=== PATIENT | female | born 1985 ===

== ENCOUNTER 2016-11-24 10:03 | Emergency (ER) | payer MEDICAID, OTHER ==
[2016-11-24 10:19] VITALS: TEMP 97.9
[2016-11-24 12:01] LABS: RBC URINE 1 /hpf (0-3); URINE BACTERIA RARE (<OCC); URINE BILIRUBIN NEGATIVE (NEGATIVE); URINE BLOOD NEGATIVE (NEGATIVE); URINE COLOR Yellow (YELLOW); URINE GLUCOSE (UA) NORMAL (Normal); URINE KETONE NEGATIVE (NEGATIVE); URINE LEUKOCYTE ESTERASE TRACE Leu/uL (Negative); URINE PROTEIN NEGATIVE (NEGATIVE); URINE UROBILINOGEN NORMAL mg/dL (0.2-1.0); WBC URINE 3 /hpf (0-5)
--- NOTE | 2016-11-24 12:31 | C.PDOC ---
History Of Present Illness 31 yr old female, 6 months presents to the ER with complaints of vagina itchy and discharge for the past 3 days. Patient admits to recent sexual intercourse which worsened the itching. Denies abdominal pain, diarrhea, dysuria , vaginal bleeding or pelvic pain. 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 History/Exam Limitations: language barrier Onset/Duration Of Symptoms: Days (3) Current Symptoms Are (Timing): Still Present Past Medical History Reviewed: Historical Data, Nursing Documentation, Vital Signs Vital Signs: Last Vital Signs Temp 97.9 F 11/24/16 12:51 Pulse 75 11/24/16 12:51 Resp 19 11/24/16 12:51 BP 110/68 11/24/16 12:51 Pulse Ox 99 11/24/16 13:01 Family History: States: No Known Family Hx - Social History Hx Alcohol Use: No Hx Substance Use: No - Immunization History Hx Tetanus Toxoid Vaccination: No Hx Influenza Vaccination: No Hx Pneumococcal Vaccination: No Review Of Systems Except As Marked, All Systems Reviewed And Found Negative. Gastrointestinal: Negative for: Abdominal Pain, Diarrhea Genitourinary: Positive for: Vaginal Discharge, Other ((+) Vaginal itch.). Negative for: Dysuria, Vaginal Bleeding, Pelvic Pain Physical Exam - Physical Exam Appears: Well, Non-toxic, No Acute Distress Skin: Warm, Dry, No Rash Head: Atraumatic, Normacephalic Eye(s): bilateral: Normal Inspection, EOMI Nose: Normal Oral Mucosa: Moist Neck: Normal, Normal ROM, Supple Chest: Symmetrical, No Tenderness Cardiovascular: Rhythm Regular, No Murmur Respiratory: Normal Breath Sounds, No Rales, No Wheezing Gastrointestinal/Abdominal: Normal Exam, Soft, No Tenderness, No Guarding, No Rebound, Other ((+) Gravid.) Back: No CVA Tenderness, No Vertebral Tenderness Pelvic: Vaginal Discharge (White thick discharge.), No Cervical Motion Tenderness, No Cervix Open, No Adnexal Tenderness Extremity: Bilateral: Atraumatic Neurological/Psych: Oriented x3, Normal Speech, Normal Cognition ED Course And Treatment O2 Sat by Pulse Oximetry: 99 Progress Note: PLAN: Chlamydia GC, HCG & Urinlaysis. case discussed with Dr Godoy, agreed upon plan and treatment. Agreed upon no prophylaxis at the time. instructed strict follow up in 1-2 days. Disposition - Disposition Disposition: HOME/ ROUTINE Disposition Time: 12:29 Condition: STABLE Additional Instructions: Vaya a garcia mdico o la clnica en 2-5 harp sin falta, para mas evaluacin. [place] los medicamentos kristopher indicado. Volver a la lei de emergencia en cualquier momento si los sntomas persisten o empeoran. Prescriptions: Miconazole [Miconazole 7] 100 mg VG QPM 7 Days Instructions: Vulvovaginal Candidiasis (ED) - Clinical Impression Clinical Impression: Vulvovaginal itching - PA / BONSAI TENDER / Resident Statement MD/DO has reviewed & agrees with the documentation as recorded. - Scribe Statement The provider has reviewed the documentation as recorded by the Scribe Kimber Soto All medical record entries made by the Scribe were at my direction and personally dictated by me. I have reviewed the chart and agree that the record accurately reflects my personal performance of the history, physical exam, medical decision making, and the department course for this patient. I have also personally directed, reviewed, and agree with the discharge instructions and disposition.
[2016-11-24 12:52] VITALS: BP 110/68; PULSE 75; RESP 19
[2016-11-24 13:00] VITALS: O2SAT 99
== END 2016-11-24 12:51 | disposition home or self-care (01) ==
LOC: C.ER 10:03
DX: L29.8 Other pruritus (principal)

== ENCOUNTER 2017-01-26 16:08 | Emergency (ER) | payer OTHER ==
--- NOTE | 2017-01-26 16:47 | OBHP ---
Datetime: 01/26/2017 16:41 IP Adm Impression: Term, intrauterine IP Chief Complaint Other: nst IP Admit Plan: Discharge home Admit Comment, IP Provider: at 37=weeks with gdma1 her for nst, no ctxs, vb, lof,+fm. obhx 1 x c/s pmh gdma1 med pnv all nkda psh c/s soch de nst 130 mod daljit ctg1 fs a/p at 37+weeks her for nst for GDMA1 Dc home labor ins given nst once weekly po hyration f/u in clinic on thursday Pelvic Type - PN: Adequate Extremities - PN: Normal Abdomen - PN: Normal Back - PN: Normal Breast - PN: Not Done Lungs - PN: Normal Heart - PN: Normal Thyroid - PN: Not Done Neurologic - PN: Normal HEENT - PN: Normal General - PN: Normal FHR - Baseline A Provider: 130 Contraction Comments Provider: none Comments, ACOG Physical Exam: gravid,non tender ext no edema,no calf ten Vital Signs Provider: Reviewed; Within Normal Limits NICHD Variability Prov Fetus A: Moderate 6-25bpm NICHD Accel Fetus A IP Provider: 15X15 FHR Category Provider Fetus A: Category I Genitourinary Exam: Normal DTRs - PN: Normal
--- NOTE | 2017-01-26 16:47 | OBDCSUM ---
Datetime: 01/26/2017 16:44 Discharged to, Provider: Home Follow up at, Provider: 01/30/17 Follow up in weeks, Provider: clinic Discharge Comment, Provider: Dc home labor ins given nst once weekly po hyration f/u in clinic on thursday Discharge Diagnosis Prov Other: 37weeks nst gdma1
[2017-01-26 23:14] VITALS: BP 118/67; PULSE 92; RESP 20; TEMP 97.9; O2SAT 95
== END 2017-01-26 17:11 | disposition home or self-care (01) ==
LOC: C.EROB 16:08
DX: Z36 Encounter for antenatal screening of mother (principal)

== ENCOUNTER 2017-02-02 14:47 | Emergency (ER) | payer OTHER ==
--- NOTE | 2017-02-09 06:30 | OBHP ---
Datetime: 02/02/2017 17:37 IP Adm Impression: Term, intrauterine IP Chief Complaint Other: NST IP Adm Impression Other: A1GDM; previous C/S IP Admit Plan: Discharge home Admit Comment, IP Provider: Patient seen and evaluated approximately 1515 hours. 31 y.o. , LMP 05/06/16; revised BRITTON 02/14/17, EGA 38w 2d here for weekly NST due to A1GDM; prev ious C/S. (+) AFM; denies LOF, VB, Ctx. care: [facility]; previous C/S. F.S. 02/01/17, per patient = 90/97/100/96. 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 since 2007; lives with and son. 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 Fam Hx: Mother alive 62 y.o. - DM. Father alive 62 y.o. no med issues. No fam h/o cancer P.E.: as above. WD in NAD. Awake, alert, oriented to time, person and place. Pleasant and cooperat rafael. Accompanied by . Assessment: 31 yo P1, 38w 2d, previous C/S, A1GDM for elective repeat C/S 02/10/17 at 39 weeks. F.S . suggests good glycemic control. NST reactive. Clinically stable. Plan: 1) Discharge home 2) Keep appointment for BPP this week 3) Keep appointment for this week 4) continue F.S. log 5) Cont PNV Pelvic Type - PN: Not Done Extremities - PN: Normal Abdomen - PN: Normal Back - PN: Normal Breast - PN: Normal Lungs - PN: Normal Heart - PN: Normal Thyroid - PN: Not Done Neurologic - PN: Normal HEENT - PN: Normal General - PN: Normal Presentation-Admit: Vertex FHR - Baseline A Provider: 145 Contraction Comments Provider: one 40 minutes Comments, ACOG Physical Exam: Abdomen: Gravid. Soft. Non tender All other systems reviewed and are negative Gestation - Est Wks by US: 38.0 EGA AdmitDate IP: 38.2 IP Chief Complaint: evaluation NICHD Variability Prov Fetus A: Moderate 6-25bpm NICHD Accel Fetus A IP Provider: 15X15 FHR Category Provider Fetus A: Category I NICHD Decel Fetus A IP Provider: None Dilatation, Provider: deferred Genitourinary Exam: Not Done DTRs - PN: Not Done
[2017-02-09 10:32] VITALS: BP 121/62; PULSE 87; RESP 18; TEMP 99; O2SAT 97
== END 2017-02-02 15:28 | disposition home or self-care (01) ==
LOC: C.EROB 14:47
DX: O26.893 Other specified pregnancy related conditions, third trimester (principal); Z3A.38 38 weeks gestation of pregnancy

== ENCOUNTER 2017-02-09 11:14 | Inpatient (IN) | payer OTHER ==
[2017-02-10] MEDS ORDERED: cefOXitin IV 2 gm in Dextrose 2 GM/50 ML BAG IVPB ONE ×2 (06:45→07:12)
[2017-02-10] MEDS ORDERED: Lactated Ringer's 1,000 ML IV SCH (06:45)
[2017-02-10] MEDS ORDERED: Sodium Citrate/Citric Acid 15 ml Sol PO ONE (06:45)
[2017-02-10] MEDS ORDERED: Oxytocin 20 units in LR 2,000 ML IV ONE (07:12)
[2017-02-10] MEDS ORDERED: Sodium Citrate/Citric Acid 15 ml Sol ONE (07:12)
--- NOTE | 2017-02-10 07:18 | OBADHP ---
Datetime: 02/10/2017 06:54 Admit Comment, IP Provider: 31 y.o. , LMP 05/06/16; revised [place]TON 02/14/17, EGA 38w 2d here for attila adam NST due to A1GDM; previous C/S. (+) AFM; denies LOF, VB, Ctx. care: [facility] - A1GDM; pr evious C/S. F.S. 02/01/17, per patient = 90/97/100/96. P Ob: 2009, C/S, male, 10+lb; failure to dilate (1cm)/failed GONZALEZ; No GDM. 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 since 2007; lives with and son. 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 Fam Hx: Mother alive 62 y.o. - DM. Father alive 62 y.o. no med issues. No fam h/o cancer P.E.: as above. WD in NAD. Awake, alert, oriented to time, person and place. Pleasant and cooperat rafael. Accompanied by . Assessment: 31 y.o. P1, 39w 3d, previous C/S for elective repeat. A1 GDM well controlled: today's fasting 82; yesterday 96/113/119/100. Patient last ate and drank at 2100 hours. Category 1 tracing. Clinically stable. Plan: 1) Admit 2) NPO 3) IVFs 4) Continuous EFM 5) Abdominal prep and shave 6) Martinez 7) Mefoxin 8) Notify anesthesia 9) Notify peds 10) automatic coin machine mechanic to O.R. Back - PN: Normal Breast - PN: Not Done Lungs - PN: Normal Heart - PN: Normal Thyroid - PN: Not Done Neurologic - PN: Normal HEENT - PN: Normal General - PN: Normal Presentation-Admit: Vertex FHR - Baseline A Provider: 135 Contraction Comments Provider: sporadic Comments, ACOG Physical Exam: Abdomen: Gravid. Soft, Non tender. Fundal height 40cm All other systems reviewed Gestation - Est Wks by US: 39w 3d Vital Signs Provider: Reviewed IP Chief Complaint: Scheduled Section FHR Category Provider Fetus A: Category I EGA AdmitDate IP: 39.3 IP Adm Impression: Term, intrauterine IP Admit Plan: Admit to unit; Initiate Section protocol Datetime: 02/02/2017 17:37 IP Chief Complaint Other: NST IP Adm Impression Other: A1GDM; previous C/S Pelvic Type - PN: Not Done Extremities - PN: Normal Abdomen - PN: Normal NICHD Variability Prov Fetus A: Moderate 6-25bpm NICHD Accel Fetus A IP Provider: 15X15 NICHD Decel Fetus A IP Provider: None Dilatation, Provider: deferred Genitourinary Exam: Not Done DTRs - PN: Not Done
[2017-02-10 07:25] LABS: BASO % 0.2 % (0.0-2.0); EOS # 0.1 K/uL (0.0-0.7); HEMATOCRIT 39.5 % (34.0-47.0); LYMPH # 2.5 K/uL (1.0-4.3); LYMPH % 18.9 % (20.0-40.0); MEAN CELL VOLUME 91.5 fL (81.0-99.0); MEAN CORPUSCULAR HEMOGLOBIN 30.6 pg (27.0-31.0); MEAN CORPUSCULAR HGB CONC 33.5 g/dL (33.0-37.0); MEAN PLATELET VOLUME 8.8 fL (7.2-11.7); MONO # 0.8 K/uL (0.0-0.8); MONO % 6.2 % (0.0-10.0); RED CELL DISTRIBUTION WIDTH 13.7 % (11.5-14.5)
[2017-02-10 07:30] LABS: RBC URINE < 1 /hpf (0-3); URINE BACTERIA RARE (<OCC); URINE BILIRUBIN NEGATIVE (NEGATIVE); URINE BLOOD NEGATIVE (NEGATIVE); URINE COLOR Straw (YELLOW); URINE GLUCOSE (UA) NORMAL (Normal); URINE KETONE NEGATIVE (NEGATIVE); URINE LEUKOCYTE ESTERASE NEG Leu/uL (Negative); URINE PROTEIN NEGATIVE (NEGATIVE); URINE UROBILINOGEN NORMAL mg/dL (0.2-1.0); WBC URINE 2 /hpf (0-5)
[2017-02-10] MEDS ORDERED: Morphine 1 mg/ml preservative-free Inj(Duramorph) ONE (07:33)
[2017-02-10] MEDS ORDERED: Phenylephrine 10 mg/ml Inj ONE (07:33)
[2017-02-10 07:37] LABS: CHLORIDE 105 mmol/L (98-107); POTASSIUM 3.7 mmol/L (3.6-5.2); SODIUM 138 mmol/L (132-148)
[2017-02-10 07:39] LABS: AST/SGOT 32 U/L (14-36); BILIRUBIN,TOTAL 0.5 mg/dL (0.2-1.3); BLOOD UREA NITROGEN 10 mg/dL (7-17); CARBON DIOXIDE 22 mmol/L (22-30); GFR AFRICAN-AMERICAN > 60
[2017-02-10 07:40] LABS: ALKALINE PHOSPHATASE 110 U/L (38-126); ALT/SGPT 39 U/L (9-52); CALCIUM 8.9 mg/dl (8.6-10.4); GLUCOSE,RANDOM 79 mg/dL (65-105)
[2017-02-10] MEDS ORDERED: Oxycodone/Acetaminophen 5/325 mg Tab PO PRN (11:47)
[2017-02-10 12:18] LABS: BASO # 0.1 K/uL (0.0-0.2); BASO % 0.3 % (0.0-2.0); EOS # 0.1 K/uL (0.0-0.7); EOS % 0.4 % (0.0-4.0); HEMATOCRIT 41.6 % (34.0-47.0); LYMPH # 2.1 K/uL (1.0-4.3); LYMPH % 11.5 % (20.0-40.0); MEAN CELL VOLUME 93.1 fL (81.0-99.0); MEAN CORPUSCULAR HEMOGLOBIN 30.3 pg (27.0-31.0); MEAN CORPUSCULAR HGB CONC 32.5 g/dL (33.0-37.0); MEAN PLATELET VOLUME 9.1 fL (7.2-11.7); MONO # 0.8 K/uL (0.0-0.8); MONO % 4.2 % (0.0-10.0); RED CELL DISTRIBUTION WIDTH 13.7 % (11.5-14.5); WHITE BLOOD COUNT 18.4 K/uL (4.8-10.8)
--- NOTE | 2017-02-10 15:48 | OBDS ---
DELIVERY PERSONNEL Delivery Doctor: Han Dee MD Scrub Nurse: shameka marie [employer] Sales Manager: Gerardo Melendez RN Anesthesiologist: MD Lucy MATERNAL INFORMATION Delivery Anesthesia: Spinal Medications in Delivery: floseal 5mls/ methergine/pitocin 20 units in 1000mls of LR Estimated Blood Loss (ml): 900 Maternal Complications: None RN Comments: successful delivery of 39.3 wk IUP via repeat c/s to a viable baby boy with apgars 9-9. Provider Comments: repeat csection done uterus adhered to abdominal wall anteriorly as well as laterally NUchalx1 around neck loose and atrue knot noted at delivery EBL 900CC LABOR SUMMARY EDC: 02/14/2017 00:00 No. Babies in Womb: 1 Attempted: No Labor Anesthesia: None LABOR INFORMATION Reason for Induction: Not Applicable Group B Beta Strep: Positive Antibiotics # of Doses: 1 Antibiotics Time of Last Dose: mefoxin 2 grams ivpb Steroids Given: None Reason Steroids Not Administered: Not Applicable MEMBRANES Membranes Rupture Method: Artificial Rupture of Membranes: 02/10/2017 09:19 Length of Rupture (hrs): 0.02 Amniotic Fluid Color: Clear Amniotic Fluid Amount: Moderate Amniotic Fluid Odor: Normal STAGES OF LABOR Stage 3 hrs: 0 Stage 3 min: 1 CSECTION DELIVERY Primary Indication: Repeat Elective Secondary Indication: Repeat Elective CSection Urgency: Elective CSection Incidence: Repeat Labor: N/A Elective: Elective CSection Incision: Lower Uterine Transverse Uterine Closure: Single-layer closure BABY A INFORMATION Infant Delivery Date/Time: 02/10/2017 09:20 Method of Delivery: Born in Route : No : N/A Forceps: N/A Vacuum Extraction: N/A Shoulder Dystocia : No SHOULDER DYSTOCIA BABY A Infant Delivery Date/Time: 02/10/2017 09:20 PRESENTATION/POSITION BABY A Presentation: Cephalic Cephalic Presentation: N/A Vertex Position: Left Occipital Anterior Breech Presentation: N/A PLACENTA INFORMATION BABY A Placenta Delivery Time : 02/10/2017 09:21 Placenta Method of Delivery: Manual Removal Placenta Status: Delivered SCORES BABY A Heart Rate 1 min: >100 bpm Resp Effort 1 min: Good Cry Reflex Irritability 1 min: Cough or Sneeze or Pulls Away Muscle Tone 1 min: Active Motion Color 1 min: Body Champion, Extremities Blue SCORE 1 MIN: 9 Heart Rate 5 min: >100 bpm Resp Effort 5 min: Good Cry Reflex Irritability 5 min: Cough or Sneeze or Pulls Away Muscle Tone 5 min: Active Motion Color 5 min: Body Champion, Extremities Blue SCORE 5 MIN: 9 INFORMATION BABY A Gestational Age at Delivery: 39.3 Gestational Status: Term Outcome : Liveborn Condition : Stable Sex: Male IDENTIFICATION/MEDS BABY A ID Band Number: [id number] Sensor Number: [id number] WEIGHT/LENGTH BABY A Infant Birthweight (gms): 3835 Weight (lb): 8 Infant Weight (oz): 7 Infant Length Inches: 19.00 Length cms: 48.3 CORD INFORMATION BABY A No. Cord Vessels: 3 Nuchal Cord : Around Neck x1, Loose Nuchal Cord Other: n/a True Knot: 1 Cord Blood Taken: Yes Banking/Donate Info: n/a Suction: Mouth; Nose ASSESSMENT BABY A Complications: None Physical Findings at Delivery: Within Normal Limits Infant Respirations: Appears Normal Player Development Executive/ALS Called : No Infant Care By: rusty beth and Transferred To: Remains with Mother
[2017-02-10] MEDS ORDERED: cefOXitin IV 2 gm in Dextrose 2 GM/50 ML BAG IVPB SCH (18:00)
[2017-02-10] MEDS: cefOXitin IV 2 gm in Dextrose 2 GM/50 ML BAG IVPB SCH (19:58)
[2017-02-10] MEDS ORDERED: DiphenhydrAMINE 50 mg/ml Inj IVP ONE (21:00)
[2017-02-11] MEDS: cefOXitin IV 2 gm in Dextrose 2 GM/50 ML BAG IVPB SCH ×2 (03:52→12:24)
--- NOTE | 2017-02-11 04:40 | OP ---
PROCEDURE DATE: 02/10/2017 PREOPERATIVE DIAGNOSES: 1. Previous infection, declined trial of labor. 2. term intrauterine . POSTOPERATIVE DIAGNOSES: 1. Previous infection, declined trial of labor. 2. term intrauterine . PROCEDURE PERFORMED: Repeat lower transverse section. SURGEON: Hugh Dee MD. FLIGHT SURGEON: Sharath Clark MD. Please note that the procedure required a surgical technology instructor to assist with entry into the abdominal cavity, to assist with the retraction of the tissues, to assist with the delivery of the , and to assist with the closure of the abdominal wall. The surgical technology instructor was present and scrubbed for the entire duration of the procedure. TYPE OF ANESTHESIA: Spinal anesthesia. ANESTHESIA ADMINISTERED BY: Navjot Ayala COMPLICATIONS: None. FINDINGS: Viable male in vertex presentation with nuchal X1 around neck, loose as well as a true knot in the umbilical cord at the time of delivery noted. Uterus with adhesions to the anterior abdominal wall as well as the lateral pelvic side wall. Unable to visualize the ovaries and the fallopian tubes. 's of 9 at 1 minute and 9 at 5 minutes. ESTIMATED BLOOD LOSS: 900 mL SPECIMENS: Placenta and segment of cord for cord blood pH. DESCRIPTION OF PROCEDURE: After informed consent was obtained, the patient was taken to the operating room where spinal anesthesia was then administered by the anesthesia team. She was therefore placed in dorsal supine position with a leftward tilt. She was then prepped and draped in the usual sterile manner. A Martinez catheter was confirmed to be draining clear urine. A Pfannenstiel skin incision was made in the previous scar and this was carried down to the underlying layer of the fascia with the help of the Bovie. The fascia was then incised in the midline and the incision extended laterally with the help of a Bovie as well. The superior aspect of the fascial incision was then grasped with Rainer clamps and elevated and the underlying rectus muscle was dissected off sharply. Attention was then turned to the inferior aspect of the fascial incision, which in a similar fashion was grasped with Rainer clamps and elevated and the underlying rectus muscle was dissected off. The rectus muscle was then tented up with the Allis clamps and sharply in the midline with help of the scalpel as well. At this point, the peritoneum was tented up with Kelsea clamps and entered sharply with Metzenbaum scissors. Once entering the peritoneal cavity, the uterus was found to be adhered throughout the anterior abdominal wall. Some of the adhesions were thin flimsy adhesions and some of the them were dense adhesions. Paying careful attention to the position of the bladder, the thin adhesions were carefully dissected on the left pelvic side wall. Similar dissection was carried out on to the right pelvic side wall as well as the low uterine segment was also freed of the adhesions sharply. Once the lower uterine segment was freed up from the adhesions in order to accomplish safe delivery, a transverse incision was made over the lower uterine segment with the help of a scalpel. The incision was bluntly stretched and the membranes were then ruptured atraumatically. The head was then delivered. Nuchal X1 around neck loose was found, which was reduced and then after the body and shoulders were delivered the true knot was noted in the umbilical cord. The cord was then clamped and cut and the infant was handed over to the waiting pediatricians. A segment of cord was taken to send for cord blood pH. Cord blood was thereafter collected and the placenta was then manually removed. The uterus was then attempted to be exteriorized, but it was densely adhered to the pelvic side markham as well as the anterior abdominal wall. The bladder blade was then inserted and the uterus was cleared of all clots and debris. A bleeding was noted from the uterus, especially from acne. At this point, anesthesia was asked to give IM Methergine, which was administered by anesthesia team along with the Pitocin mixed IV fluid, which was running. The uterus was noted to form up. The uterine incision was repaired with 0 Polysorb in a running locked fashion. Bleeding was noted from the mid section as well as from the right edge of the uterus and this was suture ligated with 0 Polysorb as well as 2-0 chromic. The peritoneal edge near the right lower edge was also noted to be oozing and this was also suture ligated with 2-0 chromic. At this point, it was determined that the serosa towards the right edge of the hysterotomy had been peeled off with the lysis of the adhesions and this was bleeding; so thereafter, a second layer of suture was done using 3-0 Polysorb in a running locked fashion to approximate the suture to the uterine incision repair site. Adequate hemostasis was noted on the uterine incision repair site. The lower end of the bladder was infected and the Kelsea clamp was placed and the Martinez and the bladder was back filled. The bladder was noted to have been away from the area of the dissection and on filling the bladder no urine was noted into the abdominal cavity. This bladder was then decompressed. The edge of the bladder at one point was noted to be bleeding and this was suture ligated using 3-0 Polysorb via figure-of-8 sutures. Adequate hemostasis was noted at this point. FloSeal was thereafter placed over the uterine incision repair site as well as the oozing peritoneal edges. Surgicel was placed over the uterine incision on the left side. Adequate hemostasis was noted from the area of the dissection as well as from the uterine incision repair site. The muscle was examined at this point. A small bleeding hematoma was noted on the left upper edge of the left rectus sheath at the junction of the fascia and this was suture ligated using 0 Polysorb via mattress suture, adequate hemostasis was noted from it. The muscle area was reapproximated with 2-0 Polysorb via mattress suture. The fascia was then closed with 0 Vicryl in a running fashion. The subcutaneous was reapproximated with 2-0 Polysorb in a running fashion. The skin was then also closed with manny. The sponge, lap, needle,and instrument count was correct as reported to me at the end of the procedure. The patient was thereafter cleaned and taken to the recovery room in stable condition. The sponge, lap, needle instrument count was correct as stated. Earlier, the Martinez catheter was left in situ for postop bladder drainage. A CBC will be checked in the recovery area. Hugh Dee MD MAGDY
[2017-02-11] MEDS: Oxycodone/Acetaminophen 5/325 mg Tab PO PRN ×3 (06:01→17:28)
[2017-02-11 07:22] LABS: BASO % 0.3 % (0.0-2.0); EOS # 0.1 K/uL (0.0-0.7); EOS % 0.4 % (0.0-4.0); HEMATOCRIT 31.5 % (34.0-47.0); LYMPH # 2.1 K/uL (1.0-4.3); LYMPH % 11.3 % (20.0-40.0); MEAN CELL VOLUME 91.9 fL (81.0-99.0); MEAN CORPUSCULAR HEMOGLOBIN 30.5 pg (27.0-31.0); MEAN CORPUSCULAR HGB CONC 33.2 g/dL (33.0-37.0); MONO # 1.2 K/uL (0.0-0.8); MONO % 6.4 % (0.0-10.0); RED CELL DISTRIBUTION WIDTH 13.6 % (11.5-14.5); WHITE BLOOD COUNT 18.7 K/uL (4.8-10.8)
--- NOTE | 2017-02-11 08:21 | OBPPN ---
Datetime: 02/11/2017 08:18 PP Pain Prov: Within normal limits PP Nausea Prov: Denies PP Flatus Prov: No PP Abdomen/Uterus Prov: Normal PP Lochia Prov: Normal PP Extremities Prov: Normal PP C/S Incision Prov: Normal PP Comments Phys Exam Prov: fudus below umblicus ext no edema,no calf ten dressing clean and dry PP Impression Prov: Normal progression PP Plan Prov: Continue present management PP Progress Note Prov: pt was seen at bed side, pain under contol, no n/v, tolerating liquid deit,v oiding,min loc, fl - pod#1 s/p c/s cbc cont pain ju cont post op care encourage ambulTION Vital Signs Provider PP: Reviewed
[2017-02-11] MEDS: Simethicone 80 mg Chewtab PO SCH ×4 (09:51→21:33)
[2017-02-12] MEDS: Oxycodone/Acetaminophen 5/325 mg Tab PO PRN ×2 (07:58→13:48)
[2017-02-12] MEDS: Simethicone 80 mg Chewtab PO SCH ×4 (09:49→21:35)
--- NOTE | 2017-02-12 09:55 | OBPPN ---
Datetime: 02/12/2017 08:15 PP Pain Prov: Within normal limits PP Nausea Prov: Denies PP Flatus Prov: No PP BM Prov: No PP Impression Prov: Normal progression PP Plan Prov: Continue present management PP Progress Note Prov: Patient seen and examined at bedside. Per nursing, no acute events overnight. Patient is doing well, pain is controlled. Patient is ambulating and tolerating diet. Lochia is mild . Urinating without difficulty. Denies passing flatus or BM. Breast and bottle feeding. Denies headac hes, dizziness, cp, palpitations, sob, urinary symtpoms. VS: 105/61 74 99.4 Gen: AAOx3 CV: RRR Lungs: CTA B/L Abd: soft, appropriately tender, fundus firm at umbilicus, incision c/d/i manny Ext: B/L LE edema, no calf tenderness Labs: 13.0>13.2/39.5<274 18.4>13.5/41.6<263 18.7>10.5/31.5<260 A positive Rubella immune A/P: 31 year old at 39w3d s/p RLTCD POD#2 1. Stable, afebrile 2. Pain control - percocet and motrin prn 3. Encourage ambulation and hydration/ encourage ISS use 4. Continue routine post care 5. Anticipate d/c tomorrow 6. Plan d/w attending Katherine Newell DO PGY-1 agree with above Vital Signs Provider PP: Reviewed
[2017-02-12 16:28] VITALS: O2SAT 99
[2017-02-13] MEDS: Oxycodone/Acetaminophen 5/325 mg Tab PO PRN (08:54)
[2017-02-13] MEDS: Simethicone 80 mg Chewtab PO SCH (09:02)
[2017-02-13 17:06] VITALS: BP 118/76; PULSE 81; RESP 18; TEMP 97
--- NOTE | 2017-02-14 00:35 | OBPPN ---
Datetime: 02/13/2017 07:55 PP Progress Note Prov: Patient seen and examined at bedside. Per nursing no acute events overnight. Patient is doing well, pain is controlled. Lochia is mild. Patient is ambulating and tolerating diet. Urinating without difficulty. Passing flatus, denies having BM. Breast and bottle feeding. Denies he adaches, dizziness, cp, palpitations, sob, urinary symptoms. VS: 114/72 84 98.0 Gen: AAOx3, NAD CV: RRR Lungs: CTA B/L Abd: soft, appropriately tender, fundus firm 2 fingerbreaths, incision c/d/i with manny Ext: B/L lower extremity edema, no calf tenderness Labs: 13.0>13.2/39.5<274 18.7>10.5/31.5<260 A positive Rubella immune A/P: 31 yo at 39w3d s/p RLTCD POD#3 1. Stable, afebrile 2. Pain control - percocet and motrin prn 3. Encourage ambulation and hydration 4. Encourage breast feeding 5. Continue routine care 6. D/C home today - f/u with clinic in 1 week for staple removal, percocet/motrin prn pain, pelvic rest x 6 weeks 7. Plan discussed with attending Katherine Newell DO, PGY-1 Attending Addendum - patient seen and evaluated by me personally. I agree with the above record of events. Vitaliy is cleared for discharge home today. Interested in IUD for contraception. Clinically stab le. Plan: 1) Discharge home 2) See full discharge instructions Datetime: 02/13/2017 07:51 PP Pain Prov: Within normal limits PP Nausea Prov: Denies PP Flatus Prov: Yes PP BM Prov: No PP Breasts Prov: Normal PP Heart Prov: Normal PP Lungs Prov: Normal PP Abdomen/Uterus Prov: Normal PP Lochia Prov: Normal PP Vulva/Perineum Prov: Not Done PP CVA Tenderness Prov: Normal PP Extremities Prov: Normal PP C/S Incision Prov: Normal PP Progress Prov: Normal PP Comments Phys Exam Prov: Abdomen: obese. Soft. Non distended. Fundus firm, mibile, mildly tender, 1 FB below umbilicus. Incision with manny - clean, dry and intact. Mild lochia rubra PP Impression Prov: Normal progression PP Plan Prov: Discharge Vital Signs Provider PP: Reviewed; Within Normal Limits
--- NOTE | 2017-02-14 00:37 | OBDCSUM ---
Datetime: 02/13/2017 10:16 Discharge Diagnosis, Provider: Term Delivered Contraception discussed, Prov: Yes Discharge Diagnosis Prov Other: Status post repeat delivery Anemia Contraception counseling Contraception after Delivery: IUD
== END 2017-02-13 13:05 | disposition home or self-care (01) | DRG 651 ==
LOC: C.4D 02-10 06:23 → C.4M 02-10 14:36
PROVIDERS: ADMIT Obstetrics & Gynecology; ATTEND Obstetrics & Gynecology
PROC: 10D00Z1 Extraction of Products of Conception, Low, Open Approach (ICD-10-PCS; principal; 2017-02-10)
DX: O24.420 Gestational diabetes mellitus in childbirth, diet controlled (principal); O69.2XX0 Labor and delivery complicated by other cord entanglement, with compression, not applicable or unspecified; O34.211 Maternal care for low transverse scar from previous cesarean delivery; O69.81X0 Labor and delivery complicated by cord around neck, without compression, not applicable or unspecified; Z37.0 Single live birth; Z3A.39 39 weeks gestation of pregnancy